=== PATIENT | male | born 1970 | race Caucasian/White ===

== ENCOUNTER 2021-09-27 13:26 | Outpatient (CLI) | payer BC, SELFPAY ==
--- NOTE | 2021-09-27 13:39 | ECG_ITS ---
Measurements Intervals [place] Rate: 64 P: 34 TN: 203 QRS: 33 QRSD: 106 T: 24 QT: 422 QTc: 435 Interpretive Statements SINUS RHYTHM BASELINE ARTIFACT- I, II, III, AVR, AVL, AVF BORDERLINE ECG Electronically Signed On 09-27-2021 13:59:40 CDT by Brijesh Bennett D.O.
== END 2021-09-27 13:27 | disposition home or self-care (01) ==
LOC: ANHSURGERY 13:30
PROVIDERS: PCP Family Medicine; Visit Provider Surgery
DX: K42.9 Umbilical hernia without obstruction or gangrene (principal); I10 Essential (primary) hypertension; Z01.818 Encounter for other preprocedural examination
CPT/HCPCS: 36415; 86850; 86900; 86901; 93005

== ENCOUNTER 2021-10-01 00:09 | Day surgery (SDC) | payer BC, SELFPAY ==
--- NOTE | 2021-09-26 09:11 | PC.NURSE ---
Report to the Outpatient Waiting Room, entrance under the green pavilion located off [facility], at time _11:30pm__ on date 10/01/21. OR Time: 1:30pm . IF YOUR SURGERY TIME IS ADJUSTED, WE WILL CALL YOU ON Thursday, September. - You and your visitor will be asked a series of questions to screen for COVID 19 for your protection. - Only one visitor is allowed at this time. - The patient visitor is requested to leave or wait in car when not with patient. - A mask is required within the hospital. Patients may have clear liquids (water, carbonated beverages, clear teas, apple juice) until 3 hours prior to surgery with a maximum of 20 ounces. - No food from midnight until time of surgery--YOU MAY HAVE CLEAR LIQUIDS UNTIL 10:30 AM ON THE MORNING OF YOUR SURGERY - Infants may have breast milk until 4 hours before surgery, formula 6 hours prior to surgery. - Children will be allowed to drink immediately following surgery. If applicable, please bring a bottle or sippy cup to assist with drinking. Juice, water, soda, and popsicles are readily available. For infants on formula, please bring formula the day of surgery. Pacifiers are allowed. Take the following medications with a SIP of water the morning of surgery: _N/A____USE YOUR PRESCRIPTION CREAMS ON YOUR LEG IF NEEDED Medications to discontinue per physician N/A Date to take last dose Please no make-up, nail danish, hairspray, perfume, deodorant, or body powder the day of surgery. No jewelry (including any body piercings) or valuables the day of surgery, leave them at home. Please take a shower or bath the night before, or the morning of, surgery with an antibacterial soap. Wear comfortable, loose fitting clothing. PURCHASE HIBICLENS OR CHLORHEXIDINE GLUCONATE LIQUID SOAP TO CLEAN YOUR CHEST, ABDOMEN, AND BILATERAL GROIN AREA - Jewelry must be removed prior to entering the operating room. Rings and piercings that are not removed may be cut off. - The hospital will not accept responsibility for valuables. - Please leave all valuables, including medications, at home the day of surgery. If you are going home after surgery, a licensed utility driver must drive you home. - NO public transportation without another adult. - We recommend that an adult stay with you for 24 hours following discharge. - We also recommend that you do not drive, make important decision, drink alcoholic beverages, or take any drugs that were not prescribed by your health care provider for at least 24 hours after your discharge time. Follow any additional instructions given to you from your surgeon. ATTENTIONIMPORTANT!!!! If you or anyone in your household have experienced Covid symptoms in the past week, please notify your surgeon or the nurse liaison at the phone number below for possible testing. Telephone instructions given to _ESREL and asked if any additional questions and then verbalized understanding. Patient advised to call surgeon office or pre surgery nurse liaison [phone] if any additional questions.
[2021-10-01] VITALS (9 sets, daily range): BP systolic 114–156; BP diastolic 51–77; PULSE 65–78; RESP 12–18; TEMP 36.4; O2SAT 93–100
[2021-10-01] MEDS: ACETAMINOPHEN 500 MG TABLET 1000 MG PO (12:15)
[2021-10-01] MEDS: LACTATED RINGERS 1,000 ML 30 ML IV CONT ×3 (12:30→17:05)
--- NOTE | 2021-10-01 12:33 | PM.IMHP ---
H&P: HPI History of Present Illness Date/Time: 10/01/21 12:33 Chief Complaint: Umbilical hernia Narrative: This is 50-year-old man who presents for umbilical hernia repair. He denies any changes since last seen in the office. Review of Systems Review of Systems: All systems reviewed & are unremarkable except as noted in HPI and below Constitutional: Constitutional: Denies chills, Denies fever(s), Denies headache(s) and Denies weight loss Eyes: Eyes: Denies change in vision ENT: Denies dizziness, Denies headache(s), Denies neck mass and Denies throat swelling Cardiovascular: Cardiovascular: Denies chest pain, Denies lightheadedness and Denies dyspnea Respiratory: Respiratory: Denies cough, Denies dyspnea and Denies wheezing Gastrointestinal: Gastrointestinal: Denies abdominal pain, Denies change in bowel habits, Denies nausea and Denies vomiting Genitourinary: Genitourinary: Denies hematuria and Denies dysuria Musculoskeletal: Musculoskeletal: Reports as per HPI Integumentary/Breasts: Skin/Breast: Reports as per HPI Neurologic: Denies dizziness and Denies headache(s) Allergic/Immunologic: Allergic/Immunologic: Denies throat swelling and Denies wheezing PMF Past Medical History Medical History (Updated 09/30/21 @ 14:19 by Guilherme Daley MD) GERD (gastroesophageal reflux disease) Hypertension LEVI (obstructive sleep apnea) Surgical History Surgical History H/O discectomy Family History Family History Other Cancer Heart disease Hypertension Social History Social History (Updated 09/26/21 @ 09:19 by Amna Vasquez RN) Smoking packs per day: 1 Smoking cigarettes per day: 20.0 Years smoked: 25 Smoking pack-years: 25.00 Smoking status: Former smoker Tobacco type: cigarettes Alcohol intake: current Alcohol use details: Socially Substance use: never Substance use type: marijuana Living arrangements: with family 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 Spiritual care concerns: No Agree to blood products: Yes Meds Home Medications and Allergies Home Medications Medication Instructions Recorded Confirmed Type lisinopril 10 mg tablet 10 mg PO BID 08/23/21 10/01/21 History loratadine 10 mg tablet 10 mg PO DAILY 08/23/21 10/01/21 History triamcinolone acetonide 1 applic TOPICAL BID 09/26/21 10/01/21 History Allergies Allergy/AdvReac Type Severity Reaction Status Date / Time Sulfa (Sulfonamide Allergy Intermediate Hives Verified 10/01/21 11:51 Antibiotics) Exam Const: General: no acute distress and alert Orientation/consciousness: patient oriented x3 HENMT: Head: normocephalic and atraumatic Ears: hearing grossly normal bilaterally General nose exam: Normal nares present Mouth: Yes Normal oral and palatal mucosa present Eyes: Periorbital: periorbital findings normal Sclera: sclerae normal EOM: EOMs intact bilaterally Neck: Neck: normal visual inspection, no lymphadenopathy and trachea midline Chest: Chest palpation & inspection: normal inspection of the chest Resp: Effort & Inspection: normal respiratory effort Auscultation: clear to auscultation bilaterally Cardio: Jugular venous distension: no JVD Rate: regular rate Rhythm: regular rhythm Heart sounds: S1 normal heart sound present and S2 normal heart sound present Peripheral pulses: Peripheral pulses 2+ throughout GI: Inspection: normal to inspection GI Palp: Yes Soft to palpation, No Tenderness to palpation present (GI), No Guarding due to palpation present (GI), Yes Hernia present (2 cm umbilical hernia) and No Rebound tenderness present Percussion: Yes normal to percussion Auscultation: normal bowel sounds : General: Yes no CVA tenderness Back/Spine/Pelvis: Back: no CVA tenderness Neuro: General: patient oriented x3, no foc
--- NOTE | 2021-10-01 12:35 | WPDHPUPDATE1 ---
History and Physical Update Update Date/Time: 10/01/21 12:35 History and Physical has been reviewed, including an updated exam of the patient. There are NO changes in the patient's condition. Risks, benefits, and alternatives have been discussed and questions answered. Patient agrees to proceed with procedure.
[2021-10-01] MEDS: KETOROLAC 15 MG/ML VIAL (*BKC) IV PUSH (12:45)
--- NOTE | 2021-10-01 12:45 | P.PNAN_ITS ---
Anes - Initial Pre Proc Eval Procedure: Operation Date: 10/01/21 13:30 Proposed Procedures p Laparoscopic Umbilical Hernia Repair with Mesh, Davinci Assisted - Lokesh Kauffman DO Date/Time: 10/01/21 12:45 Surgeon: Lokesh Kauffman DO Pre Op Diagnosis: umb. hernia Patient Data Age: 50 Gender: M Height: 1.79 m Weight: 122.4 kg Last Vital Signs Temp 97.5 F L 10/01/21 12:40 Pulse 71 10/01/21 12:40 Resp 16 10/01/21 12:40 BP 156/76 H 10/01/21 12:40 Pulse Ox 100 10/01/21 12:40 Allergies Allergy/AdvReac Type Severity Reaction Status Date / Time Sulfa (Sulfonamide Allergy Intermediate Hives Verified 10/01/21 11:51 Antibiotics) Home Medications Medication Instructions Recorded Confirmed Type lisinopril 10 mg tablet 10 mg PO BID 08/23/21 10/01/21 History loratadine 10 mg tablet 10 mg PO DAILY 08/23/21 10/01/21 History triamcinolone acetonide 1 applic TOPICAL BID 09/26/21 10/01/21 History Patient hx anesthesia problems: none Family hx anesthesia problems: none Results Review: All pre-operative results and documents have been reviewed as part of the pre-operative evaluation. [facility] Past Medical History Medical History (Updated 09/30/21 @ 14:19 by Guilherme Daley MD) GERD (gastroesophageal reflux disease) Hypertension LEVI (obstructive sleep apnea) Surgical History Surgical History H/O discectomy Family History Family History Other Cancer Heart disease Hypertension Social History Social History (Updated 09/26/21 @ 09:19 by Amna Vasquez RN) Smoking packs per day: 1 Smoking cigarettes per day: 20.0 Years smoked: 25 Smoking pack-years: 25.00 Smoking status: Former smoker Tobacco type: cigarettes Alcohol intake: current Alcohol use details: Socially Substance use: never Substance use type: marijuana Living arrangements: with family 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 Informed Consent: The patient's anesthetic plan and its attendant risks and benefits were discussed with the patient/family/POA. Questions were solicited and answers provided to the satisfaction of the patient/family/POA.
[2021-10-01] MEDS: ceFAZolin 3 GM/D5W 100 ML 100 ML IVPB (13:16)
--- NOTE | 2021-10-01 15:27 | W.PM.PROC2 ---
Procedure Note - Detailed Date of Procedure 10/01/21 Pre-op Diagnosis Umbilical hernia Post-op Diagnosis Other (Incarcerated umbilical hernia) Procedure Performed Laparoscopic incarcerated umbilical Hernia Repair with Mesh, da Sathish assisted Surgeon Lokesh Kauffman DO Anesthesia General and Local (Exparel) Indications This is a 50-year-old man who presented with a an umbilical bulge that had been present for the past couple years. It has grown in size and became more symptomatic with activity. He was found to have an umbilical hernia containing fat. This was difficult to completely reduce on exam. Discussions were made with the patient about treatment options and decision was made to proceed with robotic assisted laparoscopic umbilical hernia repair with mesh. Findings Laparoscopic incarcerated umbilical hernia repair was performed. A robotic transabdominal preperitoneal approach was utilized. Upon entering the abdominal cavity laparoscopically, there did appear to be omentum incarcerated within the hernia defect. Was able to reduce the incarcerated omentum initially and then create the preperitoneal pocket for mesh placement appear the hernia sac was reduced along with the preperitoneal pocket. The hernia defect measured 2 cm. The hernia was closed using #1 Stratafix running absorbable suture. A Ventralight ST 15 cm x 10 cm mesh was then placed within the preperitoneal pocket and secured to the abdominal wall using 3-0 Vicryl simple interrupted sutures. No specimens were obtained for pathology. Description of Procedure Procedure as well as risks, benefits, and alternatives were discussed with the patient. Written consent was obtained and placed in chart prior to procedure. Patient was brought back to surgical suite. He was placed supine on operating table. Time-out was done to confirm patient and procedure. He was then intubated by the anesthesia department. A bump was placed under his left hip, and the bed was flexed slightly to extend the space between his costal margin and iliac crest. His abdomen was prepped and draped in sterile fashion using chlorhexidine prep. A 5 millimeter incision was made in the left upper quadrant, and a 5 millimeter Optiview trocar was advanced through the abdominal layers under direct visualization. Once inside the abdominal cavity, carbon dioxide insufflation was used to create a pneumoperitoneum. His abdomen was inspected. An 8 millimeter incision was made in the left lower quadrant, and an 8 millimeter robotic trocar was placed under direct visualization. Another 8 millimeter incision was made in the left lateral abdomen, and an 8 millimeter robotic trocar was placed under direct visualization. Exparel was infiltrated along the lateral abdominal vance to perform a transversus abdominis plane block bilaterally. The 5 millimeter port was removed, the incision was extended to 12 millimeters, and a 12 millimeter air seal port was placed under direct visualization. A Luis-Negro cone was also used to place an 0-Vicryl simple interrupted suture at this trocar site. The robotic arms were brought up to the patient's bedside and secured to the ports. The camera and instruments were inserted, and I then moved over to the robotic console and took control of the camera and instruments. After careful thorough inspection of the abdominal cavity, I began my dissection at the hernia. The incarcerated omentum was reduced using blunt dissection and scissors with electrocautery. A preperitoneal pocket was then created on the left lateral abdominal wall and this was dissected from lateral to medial using scissors with electrocautery. The preperitoneal pocket was then continued and the hernia sac was reduced. The dissection was then continued along the right lateral abdominal wall until a wide in a pocket was created for mesh placement. I then measured the hernia size. The hernia measured 2 cm. The fascia was closed using a
[2021-10-01] MEDS: ONDANSETRON INJ 4 MG/2 ML VIAL IV PUSH (16:29)
== END 2021-10-01 17:45 | disposition home or self-care (01) ==
PROVIDERS: PCP Family Medicine; Visit Provider Surgery
PROC: (CPT 49653; principal; 2021-10-01 13:30)
DX: K42.0 Umbilical hernia with obstruction, without gangrene (principal); K21.9 Gastro-esophageal reflux disease without esophagitis; I10 Essential (primary) hypertension; G47.33 Obstructive sleep apnea (adult) (pediatric); Z87.891 Personal history of nicotine dependence; E66.9 Obesity, unspecified; Z68.38 Body mass index [BMI] 38.0-38.9, adult
CPT/HCPCS: 49653; S2900; A9270; C1781; C9290; J0330; J0690; J1100; J1170; J1885; J2250; J2405; J2704; J2710; J3010; J7120

== ENCOUNTER 2023-10-16 02:05 | Day surgery (SDC) | payer BC, SELFPAY ==
[2023-10-15 13:53] VITALS: BMI 40.1
[2023-10-16] VITALS (9 sets, daily range): BP systolic 118–152; BP diastolic 59–88; PULSE 60–70; RESP 16–20; TEMP 35.8–36.5; O2SAT 95–98
[2023-10-16 10:07] LABS: Basophils Absolute Auto 0.1 K/mm3 (0.0-0.1); Basophils Percent Auto 0.5 % (0.2-1.2); Eosinophils Absolute Auto 0.5 K/mm3 (0-0.3); Eosinophils Percent Auto 3.9 % (0-4.4); Hemoglobin 17.2 g/dL (14.0-18.0); Immature Granulocyte Absolute 0.06 K/mm3 (0.00-0.031); Immature Granulocyte Percent A 0.5 % (0-0.5); Lymphocytes Absolute Auto 2.02 K/mm3 (0.9-3.2); Lymphocytes Percent Auto 17.5 % (18.3-44.2); Mean Corpuscular HGB Conc 34.4 g/dl (32-36); Mean Corpuscular Hemoglobin 29.8 pg (26-34); Mean Corpuscular Volume 86.5 fl (80-100); Mean Platelet Volume 9.7 fl (7.4-10.4); Monocytes Absolute Auto 0.7 K/mm3 (0.1-0.6); Monocytes Percent Auto 6.4 % (2.6-8.5); Neutrophils Absolute Auto 8.2 K/mm3 (1.3-6.7); Neutrophils Percent Auto 71.2 % (45.5-73.1); Platelet Count Result 210 k/mm3 (150-375); Red Blood Count 5.78 M/mm3 (4.6-6.20); Red Cell Distribution Width 12.7 % (11.5-14.5); White Blood Count 11.6 K/mm3 (4.5-10.0)
[2023-10-16] MEDS: SODIUM CHLORIDE 0.9% IV 500 ML 100 ML IV CONT (10:20)
[2023-10-16 10:21] LABS: Prothrombin Time 13.4 Seconds (11.1-14.7)
[2023-10-16 10:23] LABS: Anion Gap 9 mmol/L (4-12); Blood Urea Nitrogen 16 mg/dL (9-20); Calcium 9.7 mg/dL (8.4-10.2); Carbon Dioxide 23 mmol/L (22-30); Chloride 105 mmol/L (98-107); Estimated CRCL calculation 142 ml/min; Estimated Glomerular Filt Rate > 60; Glucose 122 mg/dL (65-110); Potassium 4.5 mmol/L (3.4-5.0); Sodium 137 mmol/L (137-145)
--- NOTE | 2023-10-16 10:42 | WPDMODSED ---
Moderate Sedation Note-Pt Data Patient Data Diagnosis: Exertional angina Present Complaint: recent onset of exertional chest tightness Procedure to be performed/Plan: left heart catheterization Allergies Allergy/AdvReac Type Severity Reaction Status Date / Time Sulfa (Sulfonamide Allergy Intermediate Hives Verified 10/16/23 09:54 Antibiotics) Home Medications Medication Instructions Recorded Confirmed Type triamcinolone acetonide 0.1 % 1 applic topical BID 09/26/21 10/16/23 History topical cream aspirin 81 mg tablet,delayed 81 mg PO DAILY #100 tabs 09/11/23 10/16/23 Rx release (Adult Aspirin Regimen) lisinopril 20 2 tablet PO DAILY 09/11/23 10/16/23 History mg-hydrochlorothiazide 12.5 mg tablet metoprolol succinate 50 mg 50 mg PO DAILY #30 tabs 09/11/23 10/16/23 Rx tablet,extended release 24 hr Claritin-D 24 Hour 1 tablet PO DAILY 10/15/23 10/16/23 History atorvastatin 20 mg tablet 20 mg PO DAILY 10/15/23 10/16/23 History Current Medications: Active Medications Sodium Chloride (Normal Saline Iv) 500 mls @ 100 mls/hr IV CONT .Q5H ZAID Sedation/Anesthesia: No previous sedation/anesthesia problems (including family history). [facility] Past Medical History Medical History (Updated 09/11/23 @ 13:56 by Adi Morgan MD) Essential (primary) hypertension GERD (gastroesophageal reflux disease) ELVI (obstructive sleep apnea) Rash and nonspecific skin eruption Surgical History Surgical History H/O discectomy H/O umbilical hernia repair w mesh davinci assisted 10/01/21 Family History Family History (Updated 09/11/23 @ 13:53 by Adi Morgan MD) Mother High cholesterol Grandparent Heart disease Grandparent Enlarged heart Other Cancer Hypertension Social History Social History (Updated 09/11/23 @ 13:54 by Adi Morgan MD) Smoking packs per day: 1 Smoking cigarettes per day: 20.0 Years smoked: 30 Smoking pack-years: 30.00 Smoking status: Former smoker Tobacco type: cigarettes Smoking end date: 05/25/13 Alcohol intake: current Drinks per week: 1 Alcohol use details: Socially Substance use: never Substance use type: marijuana Do You Feel Safe in your Home?: Yes Lack of Transportation: No Lack of Food: Never True Current Housing: I Have Housing Concerned About Future Housing: No Difficulty Paying Gas/Electric Bills: No Difficulty Paying for Meds: No Currently Unemployed: No Education: Associate Degree Difficulty w/ Childcare or Family Care: No Living arrangements: with family Occupation/Education: occupation 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 Gender identity (if verbalized by the patient): Male Sexual Orientation (if Verbalized by the Patient): Straight or Heterosexual Spiritual care concerns: No Agree to blood products: Yes Mod Sed Physical Exam Physical Exam Pre Procedural Exam: Normal: Throat, Airway, Lungs, Heart Rate, Heart Rhythm, Neuro Exam and Extremities and Variation: Appearance ( pleasant obese man no distress) and Heart Size ( PMI not palpable) Hours since solid foods: 12 Hours since liquid intake: 12 Mallampati Classification: class III Internal Medicine - PN: Obj Da Vital Signs Vital Signs: Vital Signs - 24 hr 10/16/23 10:09 Temperature 35.8 C L Pulse Rate 69 Respiratory Rate 20 Blood Pressure 152/88 H Pulse Oximetry 98 Oxygen Delivery Room Air Meds/Results Medications: Active Medications Generic Name Dose Route Start Last Admin Trade Name Freq PRN Reason Stop Dose Admin Sodium Chloride 500 mls @ 100 mls/hr 10/16/23 10:00 Normal Saline Iv IV CONT .Q5H ZAID Labs 10/16/23 09:50 10/16/23 09:50 Labs: Laboratory Results - last 24 hr 10/16/23 09:50 WBC 11.6 H RBC 5.78 Hgb 17.2 Hct 50.0 MCV 86.5 MCH
--- NOTE | 2023-10-16 11:22 | WPDCARDPROC ---
Cardiac Cath Procedure Note Date of procedure:: 10/16/23 Performing physician:: Lon Malcolm MD Indication:: exertional chest tightness Brief clinical history:: this is a 52-year-old man with hypertension and dyslipidemia experiencing exertional chest tightness which prompted referral for coronary angiography Procedure Procedure performed:: left ventriculogram coronary angiogram Angio-Seal to right femoral artery Sedation/Medication given:: fentanyl 50 mg Versed 2 mg case start time 11:00 a.m. case end time 11:17 a.m. sedation provided by Minoo Mejia RN, trained observer Access site:: right femoral artery Estimated blood loss:: minimal Procedure note:: patient was brought to the cardiac catheterization lab where the right femoral triangle was prepared and draped in the normal fashion. Anesthesia was given with 1% lidocaine infiltrated locally. Using the modified Seldinger technique the right common femoral artery was punctured and a 5 [place]er vascular sheath was placed. Act to this used a 5 [place] angled pigtail catheter to measure left-sided hemodynamics and to inject the left ventriculogram in 30 SULLIVAN projection after this 5 [place] FL4 catheter was date checked coronary artery and then a 5 [place] JR4 catheter was used to engage inject the right coronary artery. The cineangiograms were reviewed the case was terminated. An angiogram was performed through the sheath after which 6 [place] Angio-Seal device was deployed with a hemostatic result. 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 Findings:: Hemodynamics: Central aortic pressure is 130 over 70 left ventricle 130/0 end-diastolic 16 there gradient on pullback across the aortic valve. Left ventricle: The left normal in size contractility is hyperdynamic with visually estimated ejection fraction of 80% with near obliteration of the left ventricular cavity in end systole the left main coronary artery is large in caliber widely patent the left anterior descending is a large caliber artery which is patent down to the apex. There is minimal plaquing of about 20-30% stenosis in the midportion of the LAD in the vicinity of the origin of the major diagonal branch. In no viewed is this approach flow-limiting disease the circumflex is a moderate to large caliber artery giving rise to the marginal branches. The circumflex is smooth and free of disease. Coronary is large caliber dominant to posterior circulation. There is minimal plaquing in the 2nd portion the RCA representing approximately 10-20% stenosis. Remainder of the right coronary is completely free of disease. Conclusion:: 1. right coronary dominant circulation with no angiographically significant coronary disease. 2. Minimal plaquing in the mid LAD and mid RCA as detailed above 3. hyper dynamic left ventricular systolic function Lon Malcolm MD [facility]
== END 2023-10-16 14:45 | disposition home or self-care (01) ==
PROVIDERS: PCP Family Medicine; Visit Provider Specialist
PROC: 4A023N7 Measurement of Cardiac Sampling and Pressure, Left Heart, Percutaneous Approach (ICD-10-PCS; CPT 93452; principal; 2023-10-16 11:30)
DX: I25.10 Atherosclerotic heart disease of native coronary artery without angina pectoris (principal); R07.89 Other chest pain; I10 Essential (primary) hypertension; E78.5 Hyperlipidemia, unspecified; G47.33 Obstructive sleep apnea (adult) (pediatric); K21.9 Gastro-esophageal reflux disease without esophagitis; Z79.82 Long term (current) use of aspirin; Z87.891 Personal history of nicotine dependence
CPT/HCPCS: 36415; 80048; 85025; 85610; 93458; C1760; C1887; C1894; G0269; J1644; J2250; J3010; J7040

== ENCOUNTER 2023-12-22 07:55 | Outpatient (CLI) | payer BC, SELFPAY ==
--- NOTE | ~2023-12-22 | XR_ITS ---
Clinical Indication: Dyspnea PA and lateral views of the chest: Comparison: None Findings: The lungs are clear, without evidence of focal consolidation or pleural effusion. Cardiome diastinal silhouette is within normal limits. Bones and soft tissues are unremarkable. Impression: Normal chest. Reviewed, dictated and finalized at location . Impression: Normal chest.
--- NOTE | 2023-12-22 12:40 | WPDPFTINT ---
PFT Procedure Performed PFT Procedure Performed Spirometry with Pre/Post Bronchodilator Plethysmography (Lung Vol) Diffusing Cap (DLCO) Flow Vol Loop PFT Interpretation This is a pulmonary function test with pre and post-bronchodilator spirometry, plethysmography and diffusing capacity. The test was performed and results interpreted in accordance with the 2019 and 2005 ATS/ERS Task Force guidelines respectively using the Global Lung Function Initiative-2012 reference equations. Patient demonstrated good effort and cooperation. Reproducibility criteria were met. The quality of the pre bronchodilator spirometry maneuver was Grade A and post bronchodilator spirometry maneuver was Grade A. Findings: Spirometry: There is decreased maximal expiratory airflow at all lung volumes with concave expiratory flow tracing. The contour the inspiratory flow tracing is normal. The pre bronchodilator FVC is 4.36 L, 89% predicted. The pre bronchodilator FEV1 is 2.86 L, 74% predicted. The pre bronchodilator FEV1: FVC ratio is 66% predicted. The post bronchodilator FVC is 4.83 L, representing an 11% increase. The post bronchodilator FEV1 is 3.35 L, representing a 17% increase. The post bronchodilator FEV1: FVC ratio 69%. Plethysmography: The total lung capacity is 7.66 L, 110% predicted. The functional residual capacity is 3.32 L, 93% predicted. The residual volume is 2.76 L, 131% predicted. Diffusing capacity: The diffusing capacity unadjusted for hemoglobin and carboxyhemoglobin is 30.9, 103% predicted. The diffusing capacity adjusted for alveolar volume is 4.32, 97% predicted. Impression: There is a mild obstructive abnormality. There is significant improvement after inhaling a single dose of albuterol. The lung volumes are normal. The diffusing capacity is normal. There are no prior studies for comparison
== END 2023-12-22 07:56 | disposition home or self-care (01) ==
PROVIDERS: PCP Family Medicine; Visit Provider Nurse Practitioner Family
DX: R06.09 Other forms of dyspnea (principal); R07.89 Other chest pain; R94.2 Abnormal results of pulmonary function studies
CPT/HCPCS: 71046; 94060; 94726; 94729

== ENCOUNTER 2024-09-16 11:45 | Outpatient (CLI) | payer BC, SELFPAY ==
--- NOTE | ~2024-09-16 | CT_ITS ---
CT Scan of the Chest without Contrast: Clinical Indication: Lung cancer screening, nicotine dependence Technique: Contiguous sections were acquired throughout the chest without intravenous contrast. Dose reduction technique was used on this scan by utilizing automated exposure control and iterative recon struction technique. The dose-length product (DLP) was 371.60 mGy-cm. Findings: There is no evidence of any significant mediastinal, hilar or axillary lymphadenopathy. The mediastin al soft tissues appear normal. There is no evidence of pleural or pericardial effusion. The lungs are clear. No pulmonary nodules or infiltrates are noted. Minimal paraseptal emphysema note d. Images through the upper abdomen reveal no abnormalities. Impression: Lung RADS 1: Negative. 12 month follow-up screening CT advised. Reviewed, dictated and finalized at location . Impression: Lung RADS 1: Negative. 12 month follow-up screening CT advised.
== END 2024-09-16 11:46 | disposition home or self-care (01) ==
LOC: MICIMG 11:45
PROVIDERS: PCP Family Medicine; Visit Provider Nurse Practitioner Family
DX: Z12.2 Encounter for screening for malignant neoplasm of respiratory organs (principal); Z87.891 Personal history of nicotine dependence
CPT/HCPCS: 71271

== ENCOUNTER 2025-02-17 01:15 | Day surgery (SDC) | payer BC, SELFPAY ==
[2025-02-03 11:08] VITALS: BMI 38.5
--- OUTSIDE RECORDS SUMMARY | 2025-02-17 01:18 | XMS_ITS | Clinical Summary ---
Author Organization [facility] Address [address] [place] [address] Care Team Providers Care Chief Diversity Officer Name Role Phone Adi Morgan MD Primary Care Provider [phone] Allergies Active Allergy Reactions Criticality Noted Date Comments Sulfa Rash Medium 09/17/2023 Medications lisinopril-hydr oCHLOROthiazide (ZESTORETIC) 20-12.5 mg per tablet 4 Active metoprolol XL (TOPROL-XL) 50 mg extended release tablet Take 1 tablet (50 mg total) by mouth daily 4 Active loratadine (CLARITIN) 10 mg tablet Take 1 tablet (10 mg total) by mouth daily Active ibuprofen 200 mg tab/cap Take by mouth every 6 (six) hours as needed for pain Active nitroglycerin (NITROSTAT) 0.4 mg SL tabletIndicatio ns:acute episode of anginal pain Place 1 tablet (0.4 mg total) under the tongue every 5 (five) minutes as needed for chest pain May repeat dose q 5 min, up to 3 doses total 25 tablet 4 Active aspirin 81 mg enteric coated tablet Take 1 tablet (81 mg total) by mouth daily Active Breyna 80-4.5 mcg/actuation inhaler 4 Active albuterol HFA (PROVENTIL HFA,VENTOLIN HFA,PROAIR HFA) 90 mcg/actuation inhaler TAKE 1-2 INHALATIONS EVERY 4-6 HOURS NEEDED FOR SHORTNESS OF BREATH OR WHEEZING 4 Active traZODone (DESYREL) 50 mg tablet Take 1 tablet (50 mg total) by mouth daily as needed 4 Active atorvastatin (LIPITOR) 20 mg tabletIndicatio ns:Dyslipidemia Take 1 tablet (20 mg total) by mouth daily 30 tablet 11 5 Active Active Problems Problem Noted Date Diagnosed Date LEVI (obstructive sleep apnea) 10/27/2023 Witnessed episode of apnea 09/17/2023 Hypersomnolence 09/17/2023 Morbid obesity 09/17/2023 Morbid obesity with BMI of 40.0-44.9, adult 08/24 Palpitations 09/17/2023 Dyslipidemia 09/17/2023 Essential hypertension 09/17/2023 POMPA (dyspnea on exertion) 09/17/2023 Chest pain 09/17/2023 Medical History Medical History Date Comments Chest pain Shortness of breath Family History Medical History Relation Name Comments Hyperlipidemia Mother Relation Name Status Comments Mother Alive Social History Tobacco Use Types Packs/Day Years Used Date Smoking Tobacco: Former Cigarettes Smokeless Tobacco: Never Tobacco Cessation:Counseling Given: Not Answered Sex and Gender Information Value Date Recorded Sex Assigned at Not on file 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 Gender Identity Not on file Sexual Orientation Not on file Obstetrics History Last Filed Vital Signs Vital Sign Reading Time Taken Comments Blood Pressure 126/70 07/21/2024 3:37 PM PSYCHOTHERAPIST COUNSELOR Pulse 70 07/21/2024 3:37 PM PSYCHOTHERAPIST COUNSELOR Temperature - - Respiratory Rate 14 09/17/2023 12:57 PM CDT Oxygen Saturation 96% 07/21/2024 3:37 PM PSYCHOTHERAPIST COUNSELOR Inhaled Oxygen Concentration - - Weight 132.5 kg (292 lb) 07/21/2024 3:37 PM PSYCHOTHERAPIST COUNSELOR Height 177.8 cm (5' 10) 07/21/2024 3:37 PM PSYCHOTHERAPIST COUNSELOR Body Mass Index 41.9 07/21/2024 3:37 PM PSYCHOTHERAPIST COUNSELOR Plan of Treatment Health Maintenance Due Date Last Done Comments Colon Cancer Screening-Colonoscopy 1970 Depression Screening 1970 Hepatitis C Screening 1970 Prostate Cancer Screening-PSA 1970 DTaP/Tdap/Td Vaccine (1 - Tdap) 1981 Hepatitis B Screening 1988 Regular Well Visit/Exam 18-64 1988 Pneumococcal vaccine <65 (1 of 2 - PCV) 1989 Zoster Vaccine (1 of 2) 2020 Covid-19 Vaccine (2024-2 6 season) 2025 08/16/2021, 10/09/2020, 09/11/2020 Influenza Vaccine (#1) 2025 , 03/13/2020, 03/25/2017, [place] [id number] [facility] ACC[facility] Care Teams Chief Diversity Officer Relationship Specialty Start Date End Date Adi Morgan MD [address] [place] [address] [place] [id number] PCP - General 09/12/19
--- OUTSIDE RECORDS SUMMARY | 2025-02-17 01:18 | XMS_ITS | Clinical Summary ---
Author Organization [facility] Address [address] 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
--- OUTSIDE RECORDS SUMMARY | 2025-02-17 01:18 | XMS_ITS | Encounter Summary ---
Author Organization [facility] Address 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
[2025-02-17 08:21] VITALS: BP 155/81; PULSE 71; RESP 18; TEMP 36.1; O2SAT 99
[2025-02-17] MEDS: LACTATED RINGERS 1,000 ML 150 ML IV CONT (08:29)
--- NOTE | 2025-02-17 08:46 | WPDANESEPPF ---
Anes - Initial Pre Proc Eval Procedure: Operation Date: 02/17/25 09:30 Proposed Procedures p Screening Colonoscopy - Chivo Segal MD Date/Time: 02/17/25 08:46 Surgeon: Chivo Segal MD Pre Op Diagnosis: screening/positive cologuard Patient Data Age: 54 Gender: M Height: 1.78 m Weight: 128.1 kg Last Vital Signs Temp 36.1 C L 02/17/25 08:21 Pulse 71 02/17/25 08:21 Resp 18 02/17/25 08:21 BP 155/81 H 02/17/25 08:21 Pulse Ox 99 02/17/25 08:21 O2 Del Method Room Air 02/17/25 08:21 Allergies Allergy/AdvReac Type Severity Reaction Status Date / Time Sulfa (Sulfonamide Allergy Intermediate Hives Verified 02/17/25 08:20 Antibiotics) Home Medications ?Medication ?Instructions ?Recorded ?Confirmed ?Type aspirin 81 mg tablet,delayed 81 mg PO DAILY #100 tabs 09/11/23 02/17/25 Rx release (Adult Aspirin Regimen) Claritin-D 24 Hour 1 tablet PO DAILY 10/15/23 02/17/25 History atorvastatin 20 mg tablet 20 mg PO DAILY 10/15/23 02/17/25 History albuterol sulfate 90 mcg/actuation 1 - 2 inh inhalation Q4-6H PRN 12/31/23 02/03/25 Rx aerosol inhaler shortness of breath or wheezing #8.5 grams metoprolol succinate 50 mg See Rx Instructions .Route 09/13/24 02/17/25 Rx tablet,extended release 24 hr .COMPLEX #30 tabs fluticasone fur. 100 mcg-umeclid 1 inh inhalation DAILY 11/02/24 02/17/25 History 62.5 mcg-vilant 25 mcg inhalat.powder (Trelegy Ellipta) lisinopril 20 2 tablet PO DAILY #180 tabs 01/02/25 02/17/25 Rx mg-hydrochlorothiazide 12.5 mg tablet Patient hx anesthesia problems: none Family hx anesthesia problems: none Results Review: All pre-operative results and documents have been reviewed as part of the pre-operative evaluation. [facility] Past Medical History Medical History Prediabetes Pure hypercholesterolemia, unspecified Rash and nonspecific skin eruption Essential (primary) hypertension GERD (gastroesophageal reflux disease) LEVI (obstructive sleep apnea) Surgical History Surgical History H/O umbilical hernia repair w mesh davinci assisted 10/01/21 H/O discectomy Family History Family History Mother High cholesterol Grandparent Heart disease Grandparent Enlarged heart Other Cancer Hypertension Social History Social History Smoking packs per day: 1 Smoking cigarettes per day: 20.0 Years smoked: 30 Smoking pack-years: 30.00 Smoking status: Former smoker Tobacco type: cigarettes Smoking end date: 05/25/13 Alcohol intake: current Drinks per week: 1 Alcohol use details: Socially Substance use: never Substance use type: marijuana Do You Feel Safe in your Home?: Yes Lack of Transportation: No Lack of Food: Never True Current Housing: I Have Housing Concerned About Future Housing: No Difficulty Paying Gas/Electric Bills: No Difficulty Paying for Meds: No Currently Unemployed: No Education: Associate Degree Difficulty w/ Childcare or Family Care: No Living arrangements: with family Occupation/Education: occupation Additional occupation/education comments: [employer] Gender identity (if verbalized by the patient): Male Sexual Orientation (if Verbalized by the Patient): Straight or Heterosexual Spiritual care concerns: No Agree to blood products: Yes Anes - Eval Final PreProcedure Day of Procedure 02/17/25 08:46 Patient weight: morbidly obese Heart: regular rate and rhythm Lungs: decreased breath sounds Airway: Mallampati scale class III Neurological: alert and oriented Last oral intake: >/= 8 hours ASA classification: III Emergent: no Anesthetic plan: proceed Anesthesia type and monitoring: general GIVS and standard monitoring Results Review: All pre-operative results and documents have been reviewed as part of the pre-operative evaluation. Informed Consent: The patient's anesthetic plan and its attendant risks and benefits were discussed with the patient/family/POA. Questions were solicited and answers provided to the satisfaction of the patient/family/POA.
--- NOTE | 2025-02-17 09:09 | PM.HPGS ---
History of Present Illness History of Present Illness Consent: Risks, benefits, and alternatives have been discussed and questions answered. Patient agrees to proceed with procedure. Chief complaint: screening/positive cologuard Narrative: Horacio Guevara is a 54 year old male here for first colonoscopy, had + cologuard Review of Systems Review of Systems: All systems reviewed & are unremarkable except as noted in HPI and below PMFSH Past Medical History Medical History (Updated 02/17/25 @ 09:10 by Chivo Segal MD) Positive colorectal cancer screening using Cologuard test Prediabetes Pure hypercholesterolemia, unspecified Rash and nonspecific skin eruption Essential (primary) hypertension GERD (gastroesophageal reflux disease) LEVI (obstructive sleep apnea) Surgical History Surgical History H/O umbilical hernia repair w mesh davinci assisted 10/01/21 H/O discectomy Family History Family History Mother High cholesterol Grandparent Heart disease Grandparent Enlarged heart Other Cancer Hypertension Social History Social History Smoking packs per day: 1 Smoking cigarettes per day: 20.0 Years smoked: 30 Smoking pack-years: 30.00 Smoking status: Former smoker Tobacco type: cigarettes Smoking end date: 05/25/13 Alcohol intake: current Drinks per week: 1 Alcohol use details: Socially Substance use: never Substance use type: marijuana Do You Feel Safe in your Home?: Yes Lack of Transportation: No Lack of Food: Never True Current Housing: I Have Housing Concerned About Future Housing: No Difficulty Paying Gas/Electric Bills: No Difficulty Paying for Meds: No Currently Unemployed: No Education: Associate Degree Difficulty w/ Childcare or Family Care: No Living arrangements: with family Occupation/Education: occupation 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 Gender identity (if verbalized by the patient): Male Sexual Orientation (if Verbalized by the Patient): Straight or Heterosexual Spiritual care concerns: No Agree to blood products: Yes Meds Home Medications and Allergies Home Medications ?Medication ?Instructions ?Recorded ?Confirmed ?Type aspirin 81 mg tablet,delayed 81 mg PO DAILY #100 tabs 09/11/23 02/17/25 Rx release (Adult Aspirin Regimen) Claritin-D 24 Hour 1 tablet PO DAILY 10/15/23 02/17/25 History atorvastatin 20 mg tablet 20 mg PO DAILY 10/15/23 02/17/25 History albuterol sulfate 90 mcg/actuation 1 - 2 inh inhalation Q4-6H PRN 12/31/23 02/03/25 Rx aerosol inhaler shortness of breath or wheezing #8.5 grams metoprolol succinate 50 mg See Rx Instructions .Route 09/13/24 02/17/25 Rx tablet,extended release 24 hr .COMPLEX #30 tabs fluticasone fur. 100 mcg-umeclid 1 inh inhalation DAILY 11/02/24 02/17/25 History 62.5 mcg-vilant 25 mcg inhalat.powder (Trelegy Ellipta) lisinopril 20 2 tablet PO DAILY #180 tabs 01/02/25 02/17/25 Rx mg-hydrochlorothiazide 12.5 mg tablet Allergies Allergy/AdvReac Type Severity Reaction Status Date / Time Sulfa (Sulfonamide Allergy Intermediate Hives Verified 02/17/25 08:20 Antibiotics) Vital Signs Vital Signs - 24 hr 02/17/25 08:21 Temperature 97 F L Pulse Rate 71 Respiratory Rate 18 Blood Pressure 155/81 H Pulse Oximetry 99 Oxygen Delivery Room Air Exam Const: General: comfortable and no acute distress HENMT: Face/Nose/Sinus: Normal nares present Eyes: General: appearance normal, both eyes and all related structures Neck: Neck: no JVD Resp: Auscultation: clear to auscultation bilaterally Cardio: Rate: regular rate Rhythm: regular rhythm GI: Inspection: non-distended GI Palp: Yes Soft to palpation Skin: General skin exam: normal color Neuro: General: gait normal Speech: normal speech Extrem: General: normal to inspection Psych: Mental Status: mental status grossly normal Assessment and Plan Assessment and plan (1) Positive colorectal cancer screening using Cologuard test: Code(s): R19.5 - Other fecal abnormalities Status: Acute Assessment and Plan: colonoscopy
--- NOTE | 2025-02-17 09:23 | S_PTH ---
PATIENT: Horacio Guevara LOC: [facility]#:[id number] AGE/SX: 54/M ROOM: RE02/17/[address]: Chivo Segal MD : 1970 BED: DIS: 02/17/2025 SPEC #: [id number] RECD: 02/17/25 10:18 STATUS: JESUS REGavi #: [id number] FRDIA: 02/17/25 09:[address]: Chivo Segal DEPT: [facility] Surgical RECD BY: Louisa Pulido ENTERED: 02/17/25 10:18 SP TYPE: Surgical OTHR DR: Adi Morgan MD Tissues: A - Colon Polypectomy Procedures: Hematoxylin and Eosin Stain Gross and Microscopic Level 4
[2025-02-17 09:26] VITALS: BP 130/77; PULSE 76; RESP 20; O2SAT 95
[2025-02-17 09:36] VITALS: BP 130/67; PULSE 66; RESP 19; O2SAT 100
[2025-02-17 09:46] VITALS: BP 125/49; PULSE 71; RESP 18; O2SAT 98
== END 2025-02-17 09:58 | disposition home or self-care (01) ==
PROVIDERS: PCP Family Medicine; Referring Provider Family Medicine; Visit Provider Internal Medicine Gastroenterology
PROC: 0DJD8ZZ Inspection of Lower Intestinal Tract, Via Natural or Artificial Opening Endoscopic (ICD-10-PCS; CPT 45378; principal; 2025-02-17 09:30)
DX: D12.3 Benign neoplasm of transverse colon (principal); K64.8 Other hemorrhoids; R73.03 Prediabetes; E78.00 Pure hypercholesterolemia, unspecified; I10 Essential (primary) hypertension; K21.9 Gastro-esophageal reflux disease without esophagitis; G47.33 Obstructive sleep apnea (adult) (pediatric); F12.90 Cannabis use, unspecified, uncomplicated; E66.01 Morbid (severe) obesity due to excess calories; Z68.41 Body mass index [BMI] 40.0-44.9, adult; Z79.82 Long term (current) use of aspirin; Z79.51 Long term (current) use of inhaled steroids; Z98.890 Other specified postprocedural states; Z87.891 Personal history of nicotine dependence; Z80.9 Family history of malignant neoplasm, unspecified; Z82.49 Family history of ischemic heart disease and other diseases of the circulatory system
CPT/HCPCS: 45385; 88305; J2003; J2704; J7120